=== PATIENT | female | born 1990 | race Caucasian/White ===

== ENCOUNTER 2018-02-17 08:29 | Emergency (ER) | payer OTHER, MEDICAID ==
[2018-02-17] MEDS ORDERED: DEXAMETHASONE 4 MG/ML VIAL IVP ONE (09:28)
[2018-02-17] MEDS ORDERED: DIAZEPAM 5 MG/ML 1 ML SYR IVP ONE (09:28)
[2018-02-17] MEDS ORDERED: KETOROLAC 15 MG/1 ML SDV IVP/IM ONE (09:28)
[2018-02-17] MEDS ORDERED: METOCLOPRAMIDE 10 MG/2 ML VIAL IVP ONE (09:28)
--- NOTE | 2018-02-17 09:33 | EDPHY ---
H & P Stated Complaint: Headache, dizziness for 2 days. - Personal History LMP (Females 10-55): 8-14 Days Ago Current Tetanus Diphtheria and Acellular Pertussis (TDAP): Yes - Medical/Surgical History Hx Asthma: No Hx Chronic Respiratory Disease: No Hx Diabetes: No Hx Cardiac Disease: No Hx Renal Disease: No Hx Cirrhosis: No Hx Alcoholism: No Hx HIV/AIDS: No Hx Splenectomy or Spleen Trauma: No Other PMH: History of cystitis. Appy. Migraines - Social History Smoking Status: Never smoked Time Seen by Provider: 02/17/18 09:16 HPI/ROS: CHIEF COMPLAINT: Headache x2 days HISTORY OF PRESENT ILLNESS: 27-year-old female history of chronic migraine complaining of 2 days of right-sided headache, dizziness, photophobia. No nausea or vomiting. No trauma. No gait instability. No history of major or minor neck or head trauma or manipulation. PRIMARY CARE PROVIDER:Teo REVIEW OF SYSTEMS: A ten point review of systems was performed and is negative with the exception of the items mentioned in the HPI PAST MEDICAL & SURGICAL HISTORY: Chronic migraine. No exogenous estrogen history. SOCIAL HISTORY: Nonsmoker. No tobacco use. No drug use. PHYSICAL EXAM (Prior to examination, patient consented to physical exam, hands were washed and my usual and customary physical exam procedures followed) 1) GENERAL: Well-developed, well-nourished, alert and oriented. Appears to be in no acute distress. Sitting in a darkened room 2) HEAD: Normocephalic, atraumatic 3) HEENT: Pupils equal, round, reactive to light bilaterally. Sclera anicteric. No nystagmus Nasopharynx, oropharynx, clear, no lesions. Ears bilaterally with normal tympanic membranes. 4) NECK: Full range of motion, no meningeal signs. 5) LUNGS: Clear auscultation bilaterally, no wheezes, no rhonchi, no retractions. 6) HEART: Regular rate and rhythm, no murmur, no heave, no gallop. 7) ABDOMEN: No guarding, no rebound, no focal tenderness, negative McBurney's, negative Aguirre's, negative Rovsing's, negative peritoneal sign, 8) MUSCULOSKELETAL: Moving all extremities, no focal areas of tenderness, no obvious trauma. No peripheral edema or discoloration. 9) BACK: No CVA tenderness, no midline vertebral tenderness, no fluctuance, no step-off, no obvious trauma, no visual or palpable abnormality. 10) SKIN: No rash, no petechiae. 11) Psychiatric: Patient is oriented X 3, there is no agitation. 12) NEURO: Awake, alert, and oriented to person, place and time. Answers questions appropriately. There were no obvious focal neurologic abnormalities. No cerebellar dysfunction. Cranial nerves 2 through to 12 intact. Normal steady gait. Upper and lower extremities bilaterally with strength 5 / 5, reflexes 2+. DIFFERENTIAL DIAGNOSIS: In no particular order, including but not limited to subarachnoid hemorrhage, migraine headache, tension headache and infectious causes such as meningitis, pharyngitis and sinusitis. The patient understands that this diagnosis is provisional and can never be 100% accurate. Usual and customary warnings were given concerning the clinical impression and all the patient's questions were answered. The patient was instructed to return to the emergency department should her symptoms worsen or return, or develop any new symptoms, otherwise to followup as directed in discharge instructions. This is a partial list of diagnoses considered. These considerations are based on history, physical exam, past history and reassessment. (Megan Valladares) Constitutional: Initial Vital Signs Temperature (C) 36.6 C 02/17/18 08:36 Heart Rate 71 02/17/18 08:36 Respiratory Rate 18 02/17/18 08:36 Blood Pressure 121/79 H 02/17/18 08:36 O2 Sat (%) 97 02/17/18 08:36 O2 Delivery Mode Room Air Allergies/Adverse Reactions: No Known Allergies Allergy (Verified 06/10/16 14:22) Home Medications: Medication Instructions Recorded Cyclobenzaprine [Flexeril 10 MG 10 mg PO TID #15 tab 06/10/16 (RX)] Medical Decision Making ED Course/Re-evaluation: 930 a.m.: I saw this patient independently based on established practice protocols. Care of patient under supervision of secondary supervising physician Dr Turcios. This patient has a nonfocal exam, no red flag neurologic signs or symptoms. History of chronic headache. At this time will hold on imaging studies. 10:44 a.m.: Re-evaluation after medication administration feeling "much better ". She would like to be discharged home. I think that subarachnoid hemorrhage , intracranial mass, malignancy, less than likely in this patient at this time. I do not think that the benefits of CT imaging, lumbar puncture, outweigh the risks in this patient. She feels comfortable being discharged and is requesting discharge. (Megan Valladares) Other Provider: The patient was evaluated and managed by the Physician Information Technology Security Analyst. My co- signature indicates that I have reviewed this chart and I agree with the findings and plan of care as documented. I am the secondary supervising physician. (Loan Turcios) - Data Points Laboratory Results: Laboratory Results 02/17/18 09:40 07 09:40 Medications Given: Discontinued Medications Dexamethasone (Decadron Injection) 8 mg IVP EDNOW ONE Stop: 02/17/18 09:29 Last Admin: 02/17/18 09:40 Dose: 8 mg Diazepam (Valium) 5 mg IVP EDNOW ONE Stop: 02/17/18 09:29 Last Admin: 02/17/18 09:41 Dose: 5 mg Ketorolac Tromethamine (Toradol) 15 mg IVP/IM EDNOW ONE Stop: 02/17/18 09:29 Last Admin: 02/17/18 09:40 Dose: 15 mg Metoclopramide HCl (Reglan Injection) 10 mg IVP EDNOW ONE Stop: 02/17/18 09:29 Last Admin: 02/17/18 09:41 Dose: 10 mg Departure - Departure Disposition: Home, Routine, Self-Care Clinical Impression: Headache Condition: Good Instructions: Acute Headache (ED) Additional Instructions: THANK YOU FOR YOUR VISIT TO OUR EMERGENCY DEPARTMENT (ED). YOU WERE SEEN TODAY BECAUSE OF A HEADACHE. YOU MAY HAVE HAD LAB TESTS, A CT SCAN, MRI OR EVEN A LUMBAR PUNCTURE (COMMONLY REFERRED TO A SPINAL TAP). WE CANNOT ALWAYS FIND THE EXACT CAUSE OF YOUR SYMPTOMS DURING YOUR VISIT TO THE ED. PLEASE FOLLOW UP WITH YOUR DOCTOR WITHIN 24 HOURS TO BE RECHECKED. RETURN TO THE ED IMMEDIATELY IF YOUR HEADACHE WORSENS, IF YOU DEVELOP A FEVER, NECK PAIN OR NECK STIFFNESS, OR IF YOU BECOME CONFUSED OR ABNORMALLY DROWSY. Referrals: [facility] ,. [Edm Groups for Call Sched] - 1-2 days without fail
[2018-02-17 10:02] LABS: PLATELET COUNT 350 10^3/uL (150-400)
[2018-02-17 11:11] VITALS: BP 112/78
== END 2018-02-17 11:10 | disposition home or self-care (01) ==
DX: R51 Headache (principal)
CPT/HCPCS: 96374; J1100; J1885; J2765; J3360